=== PATIENT | male | born 1935 | race Caucasian/White ===

== ENCOUNTER → 2021-09-20 | Outpatient (CLI) | payer MEDICARE, OTHER ==
[2021-09-20 12:07] LABS: PROTHROMBIN TIME 15.5 SECONDS (9.0-12.0)
== END ==
LOC: LAB 10:39
PROVIDERS: Family Medicine
DX: I87.2 Venous insufficiency (chronic) (peripheral) (principal); S81.801D Unspecified open wound, right lower leg, subsequent encounter; I11.0 Hypertensive heart disease with heart failure